=== PATIENT | male | born 1955 | race Caucasian/White ===

== ENCOUNTER 2021-06-10 12:10 | Outpatient (CLI) | payer OTHER, SELFPAY ==
--- NOTE | 2021-06-10 12:20 | XRR_ITS ---
PROCEDURE INFORMATION: Exam: XR Chest Exam date and time: 06/10/2021 12:20 PM Age: 66 years old Clinical indication: Shortness of breath; Prior surgery; Surgery type: Port; Additional info: R06.02 - shortness of breath TECHNIQUE: Imaging protocol: XR of the chest. Views: 2 views. COMPARISON: No relevant prior studies available. FINDINGS: Tubes, catheters and devices: A right side central line is in the SVC Lungs: Unremarkable. No consolidation. Pleural spaces: Unremarkable. No pleural effusion. No pneumothorax. Heart/Mediastinum: Unremarkable. No cardiomegaly. Bones/joints: Unremarkable. XR/XR chest 2V* [id number] IMPRESSION: 1. No acute findings. 2. Right central line in the SVC
[2021-06-10 13:07] LABS: Basophils % 0.4 %; Eosinophils # 0.2 10^3/uL (0.0-0.8); Eosinophils % 2.3 %; Hematocrit 50.4 % (42.0-52.0); Hemoglobin 16.9 g/dL (11.7-16.6); Lymphocytes # 1.5 10^3/uL (0.8-4.8); Lymphocytes % 19.3 %; Mean Corpuscular HGB Conc 33.5 g/dL (30.0-36.0); Mean Corpuscular Hemoglobin 30.2 pg (28.0-34.0); Mean Corpuscular Volume 90.2 fl (80-94); Mean Platelet Volume 10.7 fL (7.4-10.4); Monocytes % 12.8 %; Neutrophils # 4.77 10^3/uL (1.8-7.7); Neutrophils % 63.6 %; Nucleated Red Blood Cells % 0 %; Platelet Count 218 10^3/cmm (130-400); Red Blood Count 5.59 10^6/uL (4.1-5.3); Red Cell Distribution Width 13.2 % (12.1-15.1); White Blood Count 7.5 10^3/uL (4.0-10.0)
[2021-06-10 13:26] LABS: Alanine Aminotransferase 25 U/L (0-41); Albumin Level 3.6 g/dL (3.5-5.2); Alkaline Phosphatase 87 IU/L (40-130); Anion Gap 12.1 (5-19); Aspartate Amino Transferase 21 U/L (0-40); Blood Urea Nitrogen 14 mg/dL (8-23); Carbon Dioxide 25 mmol/L (22-29); Chloride 100 mmol/L (98-107); Chol HDL Ratio 4.64 mg/dL (1.0-5.00); Cholesterol 209 mg/dL (0-200); Globulin 3.4 g/dL (1.3-4.6); Glomerular Filtration Rate 113.5 mL/min (90-130); Glucose 100 mg/dL (65-115); HDL Cholesterol 45 mg/dL (60-100); LDL Cholesterol Calculated 144 mg/dL (50-129); Osmolality Calculated 277 mOsm/kg (285-295); Potassium 4.1 mmol/L (3.5-5.1); Sodium 133 mmol/L (136-145); Total Bilirubin 0.3 mg/dL (0.15-1.2); Triglycerides 100 mg/dL (0-150)
== END 2021-06-10 12:11 | disposition home or self-care (01) ==
PROVIDERS: PCP Registered Nurse; Visit Provider Registered Nurse
DX: R06.02 Shortness of breath (principal)
CPT/HCPCS: 71046; 80053; 80061; 85025

== ENCOUNTER → 2022-07-15 10:21 | Outpatient (BNVA) | payer OTHER, SELFPAY | PROVIDERS: PCP Registered Nurse; Visit Provider Registered Nurse | DX: Z00.00 Encounter for general adult medical examination without abnormal findings (principal); Z13.6 Encounter for screening for cardiovascular disorders; Z12.5 Encounter for screening for malignant neoplasm of prostate | CPT/HCPCS: 80053; 80061; 85025; G0103 ==

== ENCOUNTER 2022-07-24 07:44 | Outpatient (CLI) | payer OTHER, SELFPAY ==
--- NOTE | 2022-07-24 08:00 | CT_ITS ---
WS: [id number] LDCT LUNG CANCER SCREENING HISTORY: F17.210 - Nicotine dependence, cigarettes, uncomplicated TECHNIQUE: Axial imaging performed from the apices to 1 cm below the costophrenic angles. Coronal and sagittal reformats are submitted with axial MIP series. All CT scans at [facility] use at least one of these dose optimization techniques: automated exposure control; mA and/or kV adjustment per patient size (includes targeted exams where dose is matched to clinical indication); or iterativ e reconstruction. DLP: 79.59 mGy.cm DIvol: Mean CTDIvol: 1.60 (mGy) COMPARISON: None available. Diagnostic quality: Satisfactory Lung Nodules: No pulmonary nodules or endobronchial lesions are identified. Lungs: Mild hyperexpansion from emphysema. Linear bandlike area of atelectasis RIGHT upper lobe adjac ent to the minor fissure. Heart: Normal size heart. No pericardial effusion. Other findings: Right-sided Port-A-Cath. Mild atherosclerosis aorta. Pulmonary artery is very slightl y larger than the aorta. No mediastinal or hilar adenopathy. Mild coronary artery atherosclerosis. Sm all hiatal hernia. Mild thoracic spondylosis. No destructive bone lesions. CT/CT lung screening [id number] IMPRESSION: LUNG-RADS: 1-Negative FOLLOW UP: 12 Month: Continue annual screening with LDCT OTHER FINDINGS (S MODIFIER): None.
== END 2022-07-24 07:45 | disposition home or self-care (01) ==
PROVIDERS: PCP Registered Nurse; Visit Provider Registered Nurse
DX: Z12.2 Encounter for screening for malignant neoplasm of respiratory organs (principal); F17.210 Nicotine dependence, cigarettes, uncomplicated
CPT/HCPCS: 71271

== ENCOUNTER → 2023-01-01 09:59 | Outpatient (BNVA) | payer OTHER, SELFPAY | PROVIDERS: PCP Registered Nurse; Visit Provider Registered Nurse | DX: F32.A Depression, unspecified (principal); E78.5 Hyperlipidemia, unspecified | CPT/HCPCS: 80053; 80061 ==

== ENCOUNTER 2023-03-26 11:26 | Outpatient (CLI) | payer OTHER, SELFPAY ==
--- NOTE | 2023-03-26 12:19 | XR_ITS ---
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 Mild/moderate narrowing of the acromioclavicular joint with moderate subchondral sclerosis and osteop hytosis. Moderate narrowing of the glenohumeral joint with moderate subchondral sclerosis and cystic change in the glenoid and humeral head. Moderate/significant osteophytosis of the glenoid and humeral head. Mild/moderate subchondral sclerosis and cystic change in the biceps tuberosity. XR/XR shoulder LT min 2V* [id number] IMPRESSION: Mild/moderate osteoarthritis of the acromioclavicular joint. Moderate/significant osteoarthritis in the glenohumeral joint. Mild/moderate rotator cuff tendon arthropathy.
== END 2023-03-26 11:27 | disposition home or self-care (01) ==
PROVIDERS: PCP Registered Nurse; Visit Provider Registered Nurse
DX: M77.8 Other enthesopathies, not elsewhere classified (principal); M19.012 Primary osteoarthritis, left shoulder
CPT/HCPCS: 73030

== ENCOUNTER → 2023-05-06 08:24 | Outpatient (BNVA) | payer OTHER, SELFPAY | PROVIDERS: PCP Registered Nurse; Referring Provider Registered Nurse; Visit Provider Specialist | DX: M19.012 Primary osteoarthritis, left shoulder (principal); M77.8 Other enthesopathies, not elsewhere classified; M75.42 Impingement syndrome of left shoulder | CPT/HCPCS: 73030 ==

== ENCOUNTER 2023-05-19 08:35 | Outpatient (CLI) | payer OTHER, SELFPAY ==
--- NOTE | 2023-05-19 09:01 | XR_ITS ---
WS: [id number] EYE TECHNIQUE: 2 views of the skull CLINICAL INFORMATION: MRI SCREEN COMPARISON: None. FINDINGS: No radiopaque foreign bodies. IMPRESSION: No radiopaque foreign bodies.
--- NOTE | 2023-05-19 10:15 | MR_ITS ---
WS: [id number] MRI LEFT SHOULDER NONCONTRAST TECHNIQUE: Sagittal T2, coronal T1, T2 and proton density imaging. Axial gradient PDE imaging. CLINICAL INFORMATION: shoulder pain COMPARISON: None. FINDINGS: Moderate degenerative arthritis AC joint with mild edema. Trace subacromial fluid. Mild downsloping a cromion with slight impingement on the distal supraspinatus. Advanced degenerative narrowing of the g lenohumeral articulation. Normal distal supraspinatus. Normal infraspinatus. Normal teres minor. Subs capularis is intact. Normal biceps tendon within the bicipital groove. Normal biceps labral anchor. D egenerative fraying of the glenoid labrum. Slight hypertrophic spurring along the humeral neck. Small subcoracoid effusion. Normal intra-articular biceps tendon. IMPRESSION: 1. Moderate degenerative arthritis AC joint with mild edema. Trace subacromial fluid. Mild downslopi ng the acromion with slight impingement on the distal supraspinatus. 2. Rotator cuff is intact. 3. Normal biceps tendon within the bicipital groove. Intra-articular biceps tendon is intact. 4. Advanced degenerative narrowing of the glenohumeral articulation.
== END 2023-05-19 08:36 | disposition home or self-care (01) ==
PROVIDERS: PCP Registered Nurse; Visit Provider Specialist
DX: M19.012 Primary osteoarthritis, left shoulder (principal); M77.8 Other enthesopathies, not elsewhere classified; Z03.823 Encounter for observation for suspected inserted (injected) foreign body ruled out; M25.812 Other specified joint disorders, left shoulder
CPT/HCPCS: 70030; 73221

== ENCOUNTER → 2023-08-31 09:10 | Outpatient (BNVA) | payer OTHER, SELFPAY | PROVIDERS: PCP Registered Nurse; Visit Provider Nurse Practitioner | DX: M19.012 Primary osteoarthritis, left shoulder; M77.8 Other enthesopathies, not elsewhere classified | CPT/HCPCS: 73030 ==

== ENCOUNTER → 2023-12-14 10:38 | Outpatient (BNVA) | payer OTHER, SELFPAY | PROVIDERS: PCP Registered Nurse; Visit Provider Nurse Practitioner | DX: M19.011 Primary osteoarthritis, right shoulder; M75.21 Bicipital tendinitis, right shoulder | CPT/HCPCS: 73030 ==